=== PATIENT | female | born 1980 | race Caucasian/White ===

== ENCOUNTER 2019-06-14 15:02 | Emergency (ER) | payer MEDICAID ==
[~2019-06-14] VITALS: Wt 57.3 kg
[~2019-06-14 15:02] MED LIST: CEPH-443 PO; FAMO40TA66 PO; IBUP-1542 PO; ONDA4TAB8 PO; PREN1TAB49
[2019-06-14 15:04] VITALS: BP 117/53; PULSE 78; RESP 18
== END 2019-06-14 15:13 | disposition home or self-care (01) ==
LOC: E/R 15:02
DX: K04.7 Periapical abscess without sinus (principal)
CPT/HCPCS: 99283